=== PATIENT | male | born 1960 | race Caucasian/White ===

== ENCOUNTER → 2016-07-12 | Day surgery (SDC) | payer MEDICARE, MEDICAID ==
[~2016-07-12] VITALS: Ht 200.7 cm; Wt 87.2 kg
[~2016-07-12] MED LIST: *RESP: ALBUTEROL 2.5 MG/3 ML NEB (PRN) PERIprocedural Use ONLY NEB ONE; ACETAMINOPHEN 500 MG CPLT PO PRN; ADVA100A INH; ALPR.5 PO; ALPR0.5T99 PO; ASPI325T PO; ATROPINE SULFATE 1% OPHT SOLN 2 ML BTL ONE; BALANCED SALT SOLN OPHT IRRIG 15 ML BTL ONE; BUME1TAB PO; CALC0.25 PO; CARV6.252 PO; COUM5TAB PO; DEXAMETHASONE SOD PHOS 4 MG/ML VIAL ONE; DO NOT ADM ANY ANTICOAGULANT DRUGS XX PRN; EPINEPHrine HCL (1:1000) 1 MG/ML VIAL ONE; FLUT1INH INH; INSULIN HUMAN REGULAR 1,000 UNITS/10 ML VIAL SQ PRN; ISOS20TA2 PO; LACTATED RINGER'S 1000 ML IV SCH; LEVEMIR SQ; LISI-357 PO; METOPROLOL TARTRATE 25 MG TAB PO PRN; MIDAZOLAM HCL 2 MG/2 ML VIAL ONE; NEUR100C PO; NOVORP2 SQ; ONDANSETRON HCL 4 MG/2 ML VIAL IM PRN; PAME10CA PO; PAME75CA PO; PROPOFOL 200 MG/20 ML AMP IV ONE; RESP: ALBUTEROL 2.5 MG/3 ML NEB (PRN) ONE; SIMV10TA PO; SODIUM CHLORID 0.9% 500 ML IV SCH; STERILE WATER FOR INJ 20 ML VIAL ONE; TOBRAMYCIN/DEXAMETHASONE OPTH OINT 3.5 GM TUBE ONE; TRIAMCINOLONE ACETONIDE/PF 40 MG/ML OPTH VIAL ONE; VICO7.5T PO; ceFAZolin INJ 1,000 MG VIAL ONE; oxyCODONE/ACETAMINOPHEN 5 MG/325 MG TAB PO PRN
[2016-07-12 07:01] LABS: AUTOMATED NEUTROPHIL # 3.5 TH/MM3 (1.8-7.7); BASOPHIL # 0.1 TH/MM3 (0-0.2); BASOPHIL % 1.2 % (0.0-2.0); EOSINOPHIL # 0.2 TH/MM3 (0-0.4); EOSINOPHIL % 4.4 % (0.0-4.0); HEMATOCRIT 28.3 % (39.0-51.0); HEMO FLAGS DIFF FINAL; LYMPH % 13.9 % (9.0-44.0); LYMPHOCYTE # 0.7 TH/MM3 (1.0-4.8); MEAN CELL VOLUME 90.7 FL (80.0-100.0); MEAN CORPUSCULAR HEMOGLOBIN 29.5 PG (27.0-34.0); MEAN CORPUSCULAR HGB CONC 32.5 % (32.0-36.0); MONO % 11.6 % (0.0-8.0); NEUT % 68.9 % (16.0-70.0); PLATELET COUNT 150 TH/MM3 (150-450); RED BLOOD COUNT 3.12 MIL/MM3 (4.50-5.90); RED CELL DISTRIBUTION WIDTH 13.8 % (11.6-17.2); WHITE BLOOD COUNT 5.1 TH/MM3 (4.0-11.0)
[2016-07-12 07:05] VITALS: BP 181/92; PULSE 80; RESP 20; TEMP 97.8; O2SAT 99
[2016-07-12 07:08] LABS: INTERNATIONAL NORMALIZED RATIO 2.1 RATIO; PROTHROMBIN TIME - PATIENT 23.4 SEC (9.8-11.6)
[2016-07-12] MEDS: PHENYLEPHRINE HCL 2.5% OPTH SOLN 2 ML BTL RIGHT EYE SCH ×3 (07:23→07:53)
[2016-07-12] MEDS: ATROPINE SULFATE 1% OPHT SOLN 5 ML BTL RIGHT EYE SCH ×3 (07:23→07:53)
[2016-07-12] MEDS: CYCLOPENTOLATE HCL 1% OPHT SOLN 2 ML BTL RIGHT EYE SCH ×3 (07:23→07:53)
[2016-07-12] MEDS: TROPICAMIDE 1% OPTH SOLN 2 ML BTL RIGHT EYE SCH ×3 (07:23→07:53)
[2016-07-12 10:15] VITALS: BP 147/89; PULSE 72; RESP 18; TEMP 97.5; O2SAT 97
--- NOTE | 2016-07-12 23:38 | EKG ---
Date Performed: 07/12/2016 Time Performed: 07:18:55 PTAGE: 56 years EKG: ATRIAL FIBRILLATION LATERAL MYOCARDIAL INFARCTION , OF INDETERMINATE AGE ABNORMAL ECG PREVIOUS TRACING : 07/07/2012 05.26 Compared to prior tracing no significant change DOCTOR: Clark Ascencio Interpretating Date/Time 07/12/2016 23:37:26
--- NOTE | 2016-07-13 09:10 | MP ---
cc: SAMREEN RADFORD M.D. DATE OF SURGERY 07/12/2016 PREOPERATIVE DIAGNOSIS History of proliferative diabetic retinopathy with vitreous hemorrhage right eye. POSTOPERATIVE DIAGNOSIS History of proliferative diabetic retinopathy with vitreous hemorrhage right eye. PROCEDURE Trans pars plana vitrectomy with endolaser and laser indirect PRP, air-fluid exchange right eye. SURGEON Dr. Samreen Radford ANESTHESIA General laryngeal mask anesthesia. INDICATIONS Mrs. Diallo is a 56-year-old gentleman with a history of diabetes with proliferative diabetic retinopathy who has undergone panretinal photocoagulation in the right eye in the past. He had a significant vitreous hemorrhage despite the PRP recently and wishes to proceed electively with a vitrectomy to clear his visual pathway and optimize his visual functioning. The risks and benefits of surgery were discussed with the patient and informed consent was obtained. No guarantee was made as to visual outcome. PROCEDURE He was brought to [facility] operating room one and placed on the operating table. Appropriate anesthesia monitoring devices were applied. He was placed under general anesthesia using a laryngeal mask. The right eye was identified as the operative site, prepped and draped in usual sterile fashion. A lid speculum was placed. The microscope was brought around and adjusted. At this time, an appropriate time-out was called with the surgical team agreeing to the surgical site and proposed procedure. Using the Jamil 23-gauge vitrectomy system, the trocar cannulas were placed 3-1/2 mm posterior to the limbus after first displacing the conjunctiva with a beveled entrance. The first one was placed at approximately 9 o'clock and verified to be in the posterior chamber. An infusion cannula was affixed to it and was turned on. Two additional trocar cannulas were placed at approximately 10 and 2 o'clock in a similar fashion. The eye was entered with the Endo eliminator light pipe and vitrectomy cutter and using the wide-angle viewing system, a vitrectomy was carried out to the periphery. Preretinal hemorrhage was vacuumed off the retinal surface and then the endolaser probe was used to place additional panretinal photocoagulation in areas that had not previously been treated. The indirect delivery system was used to place more peripheral PRP with a total of 773 treatments delivered with a power that varied between 250 and 350 milliwatts and 0.1 and 0.15 second exposure. An air-fluid exchange was then performed using a soft tipped linear extrusion needle after which the plug was placed back in the cannulas and they were removed one by one with tamponade of the sites with a cotton swab leaving the eye with good pressure and no visible air leaks. Subconjunctival injections of Ancef 125 mg in half cc and Decadron 2 mg and 1/2 cc were given at separate sites. Atropine drops were placed on the cornea. The lid speculum was removed and the patient was undraped. TobraDex ointment was placed on the cornea and the right eye was patched and shielded. The patient had the laryngeal mass removed in the room and was returned to recovery in good condition laying on his left side. MD DUSTIN Lockett/JANAY /9:34 AM /9:00 AM
== END | disposition home or self-care (01) ==
LOC: HSDC 05:52
PROVIDERS: ATTEND Ophthalmology
DX: H43.11 Vitreous hemorrhage, right eye (principal); E11.3591 Type 2 diabetes mellitus with proliferative diabetic retinopathy without macular edema, right eye; J44.9 Chronic obstructive pulmonary disease, unspecified; I10 Essential (primary) hypertension
CPT/HCPCS: 00145; 67040; 85025; 85610; 93005; 94640; 94664; J0171; J0690; J1100; J2250; J7120; J7613; J3300